=== PATIENT | female | born 1995 | race American Indian/Alaskan Native ===

== ENCOUNTER 2016-11-08 01:00 | Emergency (ER) | payer MEDICAID ==
[2016-11-08] MEDS ORDERED: NORMODYNE PO ONE ×2 (04:18→11:30)
[2016-11-08 04:47] LABS: Basophils % (Auto) 0.5 % (0.0-1.8); Eosinophils % (Auto) 1.5 % (0.0-4.3); Hematocrit 38.7 % (30.3-42.9); Hemoglobin 12.2 gm/dl (10.1-14.3); Mean Corpuscular HGB Conc 32 % (30-34); Mean Corpuscular Volume 75 fl (79-97); Platelet Count 303 K/mm3 (140-440); Red Blood Count 5.18 M/mm3 (3.65-5.03); Red Cell Distribution Width 15.9 % (13.2-15.2); White Blood Count 8.3 K/mm3 (4.5-11.0)
[2016-11-08 04:49] LABS: Mean Corpuscular Hemoglobin 24 pg (28-32)
[2016-11-08 05:06] LABS: Blood Urea Nitrogen 5 mg/dL (7-17); Calcium 8.6 mg/dL (8.4-10.2); Carbon Dioxide 22 mmol/L (22-30); Glucose 142 mg/dL (65-100); Sodium 136 mmol/L (137-145)
[2016-11-08 05:07] LABS: Anion Gap 16 mmol/L; Chloride 101.6 mmol/L (98-107); Potassium 3.5 mmol/L (3.6-5.0)
[2016-11-08 05:44] LABS: Bacteria,Urine 1+ /HPF (Negative); Bilirubin,Urine NEG (Negative); Blood,Urine NEG (Negative); Ketones,Urine NEG (Negative); Leukocyte Esterase,Urine TR (Negative); Mucus,Urine FEW /HPF; Nitrite,Urine NEG (Negative); Protein,Urine <15 mg/dL mg/dL (Negative); Urobilinogen,Urine < 2.0 mg/dL (<2.0)
--- NOTE | 2016-11-08 10:43 | Emergency Department Report ---
HPI - General Chief Complaint: Headache Time Seen by Provider: 11/08/16 10:35 - HPI HPI: Chief complaint: Headache HPI: Patient is a 21-year-old female with a previous history of preeclampsia who presents 16 weeks 5 days . Patient states she went to [facility] [place] at 11 weeks and had an ultrasound. Patient states at 36 weeks of her previous she began having hypertension and headache. Patient has not seen an almond huller since she found out she was . Patient denies chest pain, shortness of breath, pedal edema, dysuria or fever. Mode of arrival: [EMS] Source: [Patient] Began: One week Duration: One week Context: See above Quality: Dull and throbbing gradual onset Severity: 7 out of 10 Improved with: Nothing Worsened with: Nothing Associated signs and symptoms: No chest pain, nausea, vomiting or diarrhea. ED Past Medical Hx - Past Medical History Previous Medical History?: Yes Hx Hypertension: Yes (with her last ) - Social History Smoking Status: Never Smoker Substance Use Type: None - Medications Home Medications: Home Medications Medication Instructions Recorded Confirmed Last Taken Type Labetalol [Normodyne TAB] 200 mg PO BID #60 tablet 11/08/16 Unknown Rx ED Review of Systems ROS: Stated complaint: WONG,DIZZINESS Other details as noted in HPI ROS Constitutional: No fever ENT: No uri symptoms Cardiovascular: No chest pain Respiratory: No sob or cough GI: No nausea vomiting or diarrhea : No dysuria frequency or urgency, Skin: No rash Neuro: No focal weakness or numbness Psych: No depression Silviano/lymph: No edema Physical Exam - Physical Exam Vital Signs: Vital Signs 11/08/16 11/08/16 11/08/16 03:59 04:24 10:08 Temperature 98.2 F Pulse Rate 92 H 89 Respiratory 18 16 Rate Blood Pressure 185/97 157/94 O2 Sat by Pulse 100 99 Oximetry Physical Exam: GENERAL: The patient is well-developed well-nourished. HEENT: Normocephalic. Atraumatic. Extraocular motions are intact. Patient has moist mucous membranes. NECK: Supple. No meningitic signs are noted. There is no adenopathy noted. CHEST/LUNGS: Clear to auscultation. There is no respiratory distress noted. HEART/CARDIOVASCULAR: Regular. There is no tachycardia. There is no gallop rub or murmur. ABDOMEN: Abdomen is soft, nontender. Patient has normal bowel sounds. There is no abdominal distention. SKIN: There is no rash. There is no edema. There is no diaphoresis. NEURO: The patient is awake, alert, and oriented. The patient is cooperative. The patient has no focal neurologic deficits. The patient has normal speech. MUSCULOSKELETAL: There is no tenderness or deformity. There is no limitation range of motion. There is no evidence of acute injury. ED Course Vital Signs 11/08/16 11/08/16 11/08/16 03:59 04:24 10:08 Temperature 98.2 F Pulse Rate 92 H 89 Respiratory 18 16 Rate Blood Pressure 185/97 157/94 O2 Sat by Pulse 100 99 Oximetry - Reevaluation(s) Reevaluation #1: 11/08/[address] Roche patient will be placed on labetalol and see her tomorrow in follow-up. ED Medical Decision Making - Lab Data Result diagrams: 11/08/16 04:38 11/08/16 04:38 Laboratory Tests 11/08/16 11/08/16 11/08/16 04:38 04:45 05:18 Troponin T < 0.010 HCG, Quant 9921 H Ur Specific [place] 1.017 Urine Protein <15 mg/dl Urine Glucose (UA) Neg Ur Leukocyte Esterase Tr Urine WBC (Auto) 5.0 Urine RBC (Auto) 1.0 U Epithel Cells (Auto) 4.0 Urine Bacteria (Auto) 1+ 11/08/16 07:22 Troponin T < 0.010 HCG, Quant Ur Specific [place] Urine Protein Urine Glucose (UA) Ur Leukocyte Esterase Urine WBC (Auto) Urine RBC (Auto) U Epithel Cells (Auto) Urine Bacteria (Auto) - EKG Data -: EKG Interpreted by Me EKG shows normal: sinus rhythm Rate: normal (82) - EKG Data When compared to previous EKG there are: previous EKG unavailable Interpretation: other (prolonged QT otherwise normal EKG) Critical care attestation.: If time is entered above; I have spent that time in minutes in the direct care of this critically ill patient, excluding procedure time. ED Disposition Clinical Impression: Hypertension affecting Qualifiers: Trimester: second trimester Qualified Code(s): O16.2 - Unspecified maternal hypertension, second trimester Disposition: DISCHARGED TO HOME OR SELFCARE Is pt being admited?: No Does the pt Need Aspirin: No Condition: Stable Instructions: Hypertension (ED), Pre-eclampsia and Eclampsia (ED) Prescriptions: Labetalol [Normodyne TAB] 200 mg PO BID #60 tablet Referrals: [facility] [Provider Group] - 11/09/16 3:30 pm Time of Disposition: 10:52
[2016-11-08] MEDS ORDERED: NORMODYNE ONE (10:56)
--- NOTE | 2016-11-08 11:00 | Event Note ---
Date: 11/08/[address] Reilly, agree with Labetalol 200mg bid now, instructed to have patient check BP bid, call for 160/100. Appointment scheduled in our office for tomorrow 3:30p, [place]. Labs reviewed.
[2016-11-08 11:08] VITALS: BP 146/90
== END 2016-11-08 11:11 | disposition home or self-care (01) ==
LOC: ED 01:00
DX: O16.2 Unspecified maternal hypertension, second trimester (principal); Z88.6 Allergy status to analgesic agent; Z88.8 Allergy status to other drugs, medicaments and biological substances
CPT/HCPCS: 36415; 80048; 81001; 84484; 84702; 85025; 93005; 93010; 99284